=== PATIENT | male | born 1965 | race Two or more races ===

== ENCOUNTER 2025-05-30 12:04 | Emergency (ER) | payer SELFPAY ==
[~2025-05-30] VITALS: Ht 165.1 cm; Wt 77.0 kg
[2025-05-30 12:06] VITALS: BP 136/91; PULSE 99; RESP 18; TEMP 37.7; O2SAT 97
== END 2025-05-30 14:56 | disposition left against medical advice (07) ==
LOC: ER 12:04 → CMPBEDREQ 16:23
DX: R42 Dizziness and giddiness (principal); H53.8 Other visual disturbances; E11.9 Type 2 diabetes mellitus without complications; I10 Essential (primary) hypertension
CPT/HCPCS: 71045; 99284